=== PATIENT | male | born 1950 | race Two or more races ===

== ENCOUNTER 2021-06-20 06:19 | Day surgery (SDC) | payer OTHER ==
[2021-06-17 12:29] VITALS: BMI 25.0
[2021-06-20] MEDS ORDERED: PROPOFOL 20 ML ONE (07:10)
[2021-06-20] MEDS ORDERED: BUPIVACAINE HCL/PF 2.5 MG/ML - 30 ML VIAL IJ ONE (07:25)
[2021-06-20] MEDS ORDERED: EPINEPHrine 1:1,000 1,000 MCG/ML ML ONE (07:27)
[2021-06-20] MEDS ORDERED: DEXAMETHASONE SOD PHOSPHATE 4 MG/1 ML VIAL ONE (08:01)
[2021-06-20] MEDS ORDERED: ceFAZolin SODIUM 1 GM VIAL ONE (08:01)
[2021-06-20] MEDS ORDERED: ONDANSETRON 4 MG/2 ML VIAL ONE (08:22)
[2021-06-20] MEDS ORDERED: oxyCODONE HCL 5 MG TABLET PO PRN (08:50)
[2021-06-20] MEDS ORDERED: ACETAMINOPHEN 325 MG TABLET (FP) PO PRN (08:50)
[2021-06-20] MEDS ORDERED: ONDANSETRON 4 MG/2 ML VIAL IVPUSH PRN (08:50)
[2021-06-20] MEDS ORDERED: LACTATED RINGERS SOLUTION 1,000 ML IV SCH (09:00)
[2021-06-20 09:48] VITALS: TEMP 97.6
[2021-06-20] MEDS ORDERED: oxyCODONE HCL 5 MG TABLET PO ONE (10:00)
[2021-06-20] MEDS ORDERED: oxyCODONE HCL 5 MG TABLET ONE (10:02)
[2021-06-20 10:24] VITALS: BP 116/68; PULSE 95
== END 2021-06-20 11:05 | disposition home or self-care (01) ==
LOC: FASU 06:19
PROVIDERS: ATTEND Orthopaedic Surgery
PROC: 0SBC4ZZ Excision of Right Knee Joint, Percutaneous Endoscopic Approach (ICD-10-PCS; principal; 2021-06-20 08:14)
DX: S83.241A Other tear of medial meniscus, current injury, right knee, initial encounter (principal); S83.281A Other tear of lateral meniscus, current injury, right knee, initial encounter; S83.8X1A Sprain of other specified parts of right knee, initial encounter; M65.861 Other synovitis and tenosynovitis, right lower leg; X58.XXXA Exposure to other specified factors, initial encounter; Y93.9 Activity, unspecified; Y92.9 Unspecified place or not applicable
CPT/HCPCS: 82962; 94760